=== PATIENT | male | born 1935 | race Caucasian/White ===

== ENCOUNTER 2018-05-31 18:15 | Emergency (ER) | payer MEDICARE, BC ==
[~2018-05-31] VITALS: Ht 182.9 cm; Wt 104.5 kg
[2018-05-31 18:15] VITALS: Ht 182.9 cm; Wt 104.5 kg
[2018-05-31] MEDS ORDERED: AMIODARONE HCL200 MG PO (18:28)
[2018-05-31] MEDS ORDERED: BAYER CHEWABLE81 MG PO (18:29)
[2018-05-31] MEDS ORDERED: ELIQUIS5 MG PO (18:30)
[2018-05-31] MEDS ORDERED: FLOMAX0.4 MG PO (18:30)
[2018-05-31] MEDS ORDERED: AUGMENTIN 875-11 TAB PO (18:30)
[2018-05-31] MEDS ORDERED: NAMENDA10 MG PO (18:31)
[2018-05-31] MEDS ORDERED: METOPROLOL TART25 MG PO (18:31)
[2018-05-31] MEDS ORDERED: OXYBUTYNIN5 MG/BLIST PO (18:31)
[2018-05-31] MEDS ORDERED: ZOCOR40 MG PO (18:32)
[2018-05-31] MEDS ORDERED: RYTHMOL SR225 MG PO (18:32)
[2018-05-31 20:40] LABS: BASOPHILS 0.2 % (0-2); EOSINOPHILS 2.9 % (0-7); HEMATOCRIT 36.7 % (42.0-54.0); HEMOGLOBIN 12.6 g/dL (13.5-17.5); IMMATURE GRANULOCYTES 0.4 % (0-5); LYMPHOCYTES 15.2 % (15-50); MCH 35.5 pg (26.0-34.0); MCHC 34.3 g/dL (31.0-37.0); MCV 103.4 fL (80.0-100.0); MEAN PLATELET VOLUME 10.1 fL (7.4-10.4); MONOCYTES 8.2 % (2-11); NEUTROPHILS 73.1 % (40-80); PLATELET COUNT 163 10x3/uL (130-400); RBC 3.55 10x6/uL (4.20-6.10); RDW 15.4 % (11.5-14.5); WBC 5.1 10x3/uL (4.8-10.8)
[2018-05-31 20:45] LABS: ALBUMIN 2.3 g/dL (3.4-5.0); ALKALINE PHOSPHATASE 68 U/L (46-116); ALT (SGPT) 12 U/L (10-68); CALC OSMOLALITY 282 mosm/kg (275-300); CALCIUM 8.1 mg/dL (8.5-10.1); CARBON DIOXIDE 29.2 mmol/L (21.0-32.0); CHLORIDE - SERUM 98 mmol/L (98-107); CREATININE - SERUM 2.5 mg/dL (0.6-1.3); GLUCOSE 128 mg/dL (74-106); POTASSIUM - SERUM 3.9 mmol/L (3.5-5.1); PROTEIN - SERUM 6.3 g/dL (6.4-8.2); SODIUM 136 mmol/L (136-145); UREA NITROGEN 38 mg/dL (7-18); eGFR NON AFRICAN AMERICAN 26 mL/min (90-120)
[2018-05-31 20:57] LABS: CKMB 0.4 U/L (0.0-3.6); CREATINE KINASE 20 UL (21-232); PRO BNP 1755 pg/mL (0-450); TROPONIN-I 0.016 ng/mL (0.000-0.060)
[2018-05-31 21:54] LABS: APPEARANCE CLEAR (CLEAR); BILIRUBIN NEGATIVE (NEGATIVE); COLOR YELLOW (YELLOW); GLUCOSE NEGATIVE (NEGATIVE); KETONE NEGATIVE (NEGATIVE); NITRITE NEGATIVE (NEGATIVE); PROTEIN NEGATIVE (NEGATIVE); SPECIFIC GRAVITY 1.015 (1.005-1.020); UROBILINOGEN NORMAL (NORMAL)
[2018-05-31 21:55] LABS: EPITHELIAL CELLS OCC /hpf (0-5); RED CELLS - URINE 25-50 /hpf (0-5); WHITE CELLS - URINE OCC /hpf (0-5)
[2018-05-31 23:46] VITALS: BP 145/72
== END 2018-05-31 23:46 ==
LOC: D.ER 18:15
PROVIDERS: Emergency Medicine
DX: I48.91 Unspecified atrial fibrillation (principal); R41.0 Disorientation, unspecified